=== PATIENT | female | born 1990 | race Two or more races ===

== ENCOUNTER 2021-07-15 17:36 | Emergency (ER) | payer OTHER ==
[~2021-07-15] VITALS: Ht 154.9 cm; Wt 58.5 kg
[2021-07-15] MEDS ORDERED: OBSTETRX ONE 38-1-22 (18:36)
== END 2021-07-15 22:31 | disposition home or self-care (01) ==
LOC: ER 17:36
DX: O23.91 Unspecified genitourinary tract infection in pregnancy, first trimester (principal); Z3A.14 14 weeks gestation of pregnancy

== ENCOUNTER 2021-12-23 14:51 | Inpatient (IN) | payer OTHER ==
[~2021-12-23] VITALS: Ht 154.9 cm; Wt 71.2 kg
[~2021-12-23 14:51] MED LIST: OBSTETRX ONE 38-1-22
--- NOTE | 2021-12-23 15:34 | NUR ---
SE RECIBE PTE ALERTA Y ORIENTADA X3 QUIEN REFIERE QUE DESDE ANOCHE PRESENTA CONGESTION NASAL, DOLOR DE ARTIE, FIEBRE Y DOLOR EN LA [place]. AL MOMENTO DEL TRIAGE PTE NO PRESENTA FIEBRE. SE MONITOREAN S/V Y SE UBICA EN FT. PTE EMBARAZADA DE 37 SEMANAS, NO PRESENTA NADA RELACIONADO AL EMBARAZO, SOLO LOS SINTOMAS DE GRIPE.
--- NOTE | 2021-12-23 17:46 | NUR ---
EVALUA PTE. SE EDUCA SOBRE TX MEDICO EL CUAL REFIERE COMPRENDER. SE COLECTAN MUESTRAS DE LABORATORIO BAJO MEDIDAS ASEPTICAS. SE ADMINISTRAN MEDICAMENTOS MARY ORDEN MEDICA. PTE MANEJADA POR .
[2021-12-23] MEDS ORDERED: ACETAMINOPHEN650 M2 PO (19:27)
[2021-12-23] MEDS ORDERED: MUCINEX DM ER1 EACH PO (19:27)
--- NOTE | 2021-12-23 19:48 | NUR ---
SE UBICA APACIENTE EN AREA DE SECCION K EN ESPERA DE EJECUTAR ADMICION, PACIENTE POSITIVA A COVID 19.
[2021-12-24] MEDS ORDERED: FUSION PLUS CA1 EACH (11:25)
== END 2021-12-28 17:56 | disposition home or self-care (01) | DRG 831 ==
LOC: ER 14:51 → OB/GYN 19:40 → LDR 19:40
PROVIDERS: ADMIT Specialist; ATTEND Specialist
PROC: 8E0ZXY6 Isolation (ICD-10-PCS; principal; 2021-12-23)
PROC: 4A1HXCZ Monitoring of Products of Conception, Cardiac Rate, External Approach (ICD-10-PCS; 2021-12-23)
PROC: BY4FZZZ Ultrasonography of Third Trimester, Single Fetus (ICD-10-PCS; 2021-12-23)
DX: O98.513 Other viral diseases complicating pregnancy, third trimester (principal); U07.1 COVID-19; Z3A.37 37 weeks gestation of pregnancy; Z20.822 Contact with and (suspected) exposure to COVID-19

== ENCOUNTER 2022-01-06 05:32 | Inpatient (IN) | payer OTHER ==
[~2022-01-06] VITALS: Ht 154.9 cm; Wt 2.7 kg
[~2022-01-06 05:32] MED LIST changes: +ACETAMINOPHEN650 M2 PO; +FUSION PLUS CA1 EACH; +MUCINEX DM ER1 EACH PO
[2022-01-06] MEDS ORDERED: PRENATABS RX T1 EACH PO (06:26)
== END 2022-01-09 18:17 | disposition home or self-care (01) | DRG 788 ==
LOC: LDR 05:32 → O/R 13:59 → OB/GYN 16:24
PROVIDERS: ADMIT Specialist; ATTEND Specialist
PROC: 4A1HXCZ Monitoring of Products of Conception, Cardiac Rate, External Approach (ICD-10-PCS; 2022-01-06)
PROC: 10D00Z1 Extraction of Products of Conception, Low, Open Approach (ICD-10-PCS; principal; 2022-01-06 13:00)
DX: O62.1 Secondary uterine inertia (principal); Z3A.39 39 weeks gestation of pregnancy; Z37.0 Single live birth; Z20.822 Contact with and (suspected) exposure to COVID-19